=== PATIENT | male | born 1935 | race Caucasian/White ===

== ENCOUNTER 2017-08-20 14:48 | Inpatient (IN) | payer OTHER, BC ==
[~2017-08-20] VITALS: Ht 177.8 cm; Wt 83.6 kg
[~2017-08-20 14:48] MED LIST: AVODART PO; AZILECT PO; CYMBALTA PO; EXELON TD; FLO4 PO; L40 PO; NAMENDA XR7 MG PO; NEU300 PO; NOR10T PO; OCU OU; PHEDML PO; PRA40 PO; PREOS; ROPINIROLE PO; STALEVO; TYL500 PO; VITB12I SL; VITD PO; [UNRECOGNIZED DRUG - CODE] TOP
[2017-08-20 15:14] VITALS: Ht 177.8 cm; Wt 83.6 kg
[2017-08-20 16:42] LABS: BASOPHIL % 0.1 % (0-2); PLATELET COUNT 170 x10^3mcL (130-400); RED CELL DISTRIBUTION WIDTH 13.3 % (11.5-14.5)
[2017-08-20 16:52] LABS: CARBON DIOXIDE 32.6 mmol/L (21-32); CHLORIDE SERUM 96 mmol/L (98-107); CREATININE SERUM 1.1 mg/dL (0.7-1.3); GLUCOSE SERUM 100 mg/dL (74-106); POTASSIUM SERUM 3.3 mmol/L (3.5-5.1); SODIUM SERUM 139 mmol/L (136-145)
[2017-08-20 16:57] LABS: ALBUMIN 3.8 g/dL (3.4-5.0); ALKALINE PHOSPHATASE 91 U/L (46-116); ALT/SGPT 8 U/L (16-63); AST/SGOT 17 U/L (15-37); BILIRUBIN TOTAL 1.3 mg/dL (0.20-1.00); CHOLESTEROL 164 mg/dL (<200); TOTAL PROTEIN, SERUM 8.2 g/dL (6.4-8.2)
[2017-08-20 16:58] LABS: HDL CHOLESTEROL 62 mg/dL (40-60)
[2017-08-20 19:04] LABS: microscopic required? YES; urine erythrocyte TRACE (NEGATIVE)
[2017-08-20] MEDS ORDERED: FINASTERIDE5 M1 PO (19:09)
[2017-08-20] MEDS ORDERED: FLUDROCORTISON0.1 MG PO (19:10)
[2017-08-20] MEDS ORDERED: FUROSEMIDE40 MG PO (19:14)
[2017-08-20] MEDS ORDERED: FUROSEMIDE80 MG PO (19:15)
[2017-08-20] MEDS ORDERED: CLARITIN10 MG PO (19:16)
[2017-08-20] MEDS ORDERED: NAMENDA10 M2 PO (19:17)
[2017-08-20] MEDS ORDERED: ROPINIROLE2 M1 PO (19:18)
[2017-08-20] MEDS ORDERED: TAMSULOSIN HYD0.4 M1 PO (19:19)
[2017-08-20] MEDS ORDERED: NEIGHBOR P PO (19:20)
[2017-08-20] MEDS ORDERED: LIPI10 PO (19:21)
[2017-08-20] MEDS ORDERED: SINEMET 25-1001 TAB PO (19:22)
[2017-08-20] MEDS ORDERED: COLACE100 MG PO (19:23)
[2017-08-20] MEDS ORDERED: DULOXETINE30 MG PO (19:23)
[2017-08-20] MEDS ORDERED: APAP/HYDROCODON1 T11 PO (19:24)
[2017-08-20] MEDS ORDERED: RIVASTIGMINE1 EAC2 TD (19:26)
[2017-08-20 20:28] LABS: T3 TOTAL 0.97 ng/mL
[2017-08-20 20:36] LABS: MAGNESIUM 1.9 mg/dL (1.8-2.4); PHOSPHOROUS 2.9 mg/dL (2.5-4.9)
[2017-08-20 20:43] LABS: CHOLESTEROL/HDL RATIO 2.7
[2017-08-20 20:50] LABS: FREE T4 0.99 ng/dL (0.76-1.46); FREE THYROXINE INDEX 2.1 ug/dL (1.4-4.5); T4(THYROXINE) 6.7 ug/dL (4.7-13.3)
[2017-08-21 05:02] LABS: RED CELL DISTRIBUTION WIDTH 13.6 % (11.5-14.5)
[2017-08-21 05:03] LABS: CALCIUM 8.1 mg/dL (8.5-10.1); CARBON DIOXIDE 31.8 mmol/L (21-32); CHLORIDE SERUM 102 mmol/L (98-107); CREATININE SERUM 1.2 mg/dL (0.7-1.3); GLUCOSE SERUM 94 mg/dL (74-106); POTASSIUM SERUM 3.5 mmol/L (3.5-5.1); SODIUM SERUM 140 mmol/L (136-145)
[2017-08-21 05:05] LABS: BASOPHIL % 0.1 % (0-2); PLATELET COUNT 132 x10^3mcL (130-400)
[2017-08-21 05:53] VITALS: BP 132/62
[2017-08-21 09:26] VITALS: BP 166/65
[2017-08-21 10:08] VITALS: BP 166/65
[2017-08-21 14:23] VITALS: BP 124/44
[2017-08-21 17:21] VITALS: BP 159/59
[2017-08-21 21:45] VITALS: BP 142/53
[2017-08-22 05:52] VITALS: BP 107/56
[2017-08-22 06:45] LABS: BASOPHIL % 0.2 % (0-2); PLATELET COUNT 138 x10^3mcL (130-400); RED CELL DISTRIBUTION WIDTH 13.6 % (11.5-14.5)
[2017-08-22 06:52] LABS: CALCIUM 8.4 mg/dL (8.5-10.1); CARBON DIOXIDE 30.6 mmol/L (21-32); CHLORIDE SERUM 101 mmol/L (98-107); CREATININE SERUM 1.1 mg/dL (0.7-1.3); GLUCOSE SERUM 100 mg/dL (74-106); MAGNESIUM 1.8 mg/dL (1.8-2.4); PHOSPHOROUS 3.2 mg/dL (2.5-4.9); POTASSIUM SERUM 3.7 mmol/L (3.5-5.1); SODIUM SERUM 141 mmol/L (136-145)
[2017-08-22 09:14] VITALS: BP 105/39
[2017-08-22 13:55] VITALS: BP 142/54
[2017-08-22 16:50] VITALS: BP 135/55
[2017-08-22 21:42] VITALS: BP 135/50
[2017-08-23 05:46] VITALS: BP 136/70
[2017-08-23 06:04] LABS: BASOPHIL % 0.8 % (0-2); PLATELET COUNT 131 x10^3mcL (130-400); RED CELL DISTRIBUTION WIDTH 13.4 % (11.5-14.5)
[2017-08-23 06:13] LABS: CALCIUM 8.4 mg/dL (8.5-10.1); CARBON DIOXIDE 28.1 mmol/L (21-32); CHLORIDE SERUM 103 mmol/L (98-107); CREATININE SERUM 1.1 mg/dL (0.7-1.3); GLUCOSE SERUM 101 mg/dL (74-106); POTASSIUM SERUM 3.5 mmol/L (3.5-5.1); SODIUM SERUM 140 mmol/L (136-145)
[2017-08-23 09:17] VITALS: BP 134/49
[2017-08-23 12:35] VITALS: BP 142/56
[2017-08-23 17:18] VITALS: BP 164/65
[2017-08-23 20:13] VITALS: BP 145/52
[2017-08-24 05:20] VITALS: BP 191/72
[2017-08-24 06:07] VITALS: BP 161/63
[2017-08-24 09:17] VITALS: BP 150/60
[2017-08-24] MEDS ORDERED: LEVAQUIN750 MG PO (13:57)
[2017-08-24] MEDS ORDERED: LAC PO (13:58)
[2017-08-24] MEDS ORDERED: CLINDAMYCIN HC300 MG PO (13:58)
[2017-08-24 14:08] VITALS: BP 143/61
[2017-08-24 15:39] VITALS: BP 143/61
== END 2017-08-24 16:00 | DRG 177 ==
LOC: ED 14:48 → DU 18:05 → MU 08-21 08:04
PROVIDERS: Emergency Medicine; Family Medicine
DX: J69.0 Pneumonitis due to inhalation of food and vomit (principal); G93.41 Metabolic encephalopathy; F03.90 Unspecified dementia, unspecified severity, without behavioral disturbance, psychotic disturbance, mood disturbance, and anxiety; I10 Essential (primary) hypertension; G20 Parkinson's disease; F32.9 Major depressive disorder, single episode, unspecified; E87.6 Hypokalemia; R31.9 Hematuria, unspecified; G62.9 Polyneuropathy, unspecified; N40.0 Benign prostatic hyperplasia without lower urinary tract symptoms; K59.00 Constipation, unspecified; E78.5 Hyperlipidemia, unspecified; Z95.810 Presence of automatic (implantable) cardiac defibrillator; Z74.01 Bed confinement status; Z68.24 Body mass index [BMI] 24.0-24.9, adult
CPT/HCPCS: 83880; 84439; 87804; 94150; 97110-GP; 97116-GP; 97530-GP; J0456; J0696; J1956; J3490; J7030; J7050; J7620; Q0092